=== PATIENT | female | born 1930 | race Caucasian/White ===

== ENCOUNTER → 2018-05-16 | Outpatient (CLI) | payer OTHER ==
[2015-04-17 09:33] VITALS: BP 128/60
[~2018-05-16] MED LIST: LEVO75TA PO; MULT-658 PO; OMEP40CA5 PO; POLY255P PO; SIMV20TA3 PO
--- NOTE | 2018-05-16 13:53 | RAD ---
EXAM: Nuclear gastric emptying scan. HISTORY: Constipation. Bloating. Pain. COMPARISON: None. TECHNIQUE: Serial static images were obtained over the stomach following oral administration of 2.2 mCi of 99m-Tc sulfur colloid. FINDINGS: The stomach empties into the small bowel without evidence of reflux in the area of the esophagus. The estimated time for half emptying of gastric contents, i.e. 'gastric emptying time' is 57 minutes (normal is 66 +/- 22 minutes). There is 48% retained tracer activity at one hour, 4% retained tracer activity at 2 hours, and 2% retained tracer activity at 3 hours and 4 hours. IMPRESSION: Normal gastric emptying scan. Electronically signed by: Betsy Worthington MD (05/16/2018 1:50 PM) [facility]
== END | disposition home or self-care (01) ==
LOC: NM 07:20
PROVIDERS: ATTEND Internal Medicine Gastroenterology
DX: R10.84 Generalized abdominal pain (principal); E78.5 Hyperlipidemia, unspecified; E78.00 Pure hypercholesterolemia, unspecified; Z90.710 Acquired absence of both cervix and uterus
CPT/HCPCS: 78264; A9541

== ENCOUNTER → 2018-08-20 | Outpatient (CLI) | payer OTHER ==
[2015-04-17 09:33] VITALS: BP 128/60
[~2018-08-20] MED LIST changes: -POLY255P PO; +POLY255P11 PO
--- NOTE | 2018-08-23 09:45 | RAD ---
DATE: 08/20/2018 EXAM: MAMMO MATEUSZ SCREENING BILATERAL HISTORY: Routine screening COMPARISON: 09/06/2017 This study was interpreted with the benefit of Computerized Aided Detection (CAD). Breast Density: HETERO The breast parenchyma is heterogenously dense, which could reduce sensitivity of mammography. Breast parenchyma level C. FINDINGS: 2-D and 3-D tomosynthesis imaging was performed in CC and MLO projections. No new or enlarging breast densities are seen. Benign type calcifications are present. No suspicious microcalcifications have developed. IMPRESSION: Stable mammograms without evidence of malignancy. BI-RADS CATEGORY: 2 BENIGN FINDING(S) RECOMMENDED FOLLOW-UP: 12M 12 MONTH FOLLOW-UP PQRS compliance statement: Patient information was entered into a reminder system with a target due date for the next mammogram. Mammography is a sensitive method for finding small breast cancers, but it does not detect them all and is not a substitute for careful clinical examination. A negative mammogram does not negate a clinically suspicious finding and should not result in delay in biopsying a clinically suspicious abnormality. "Our facility is accredited by the [employer] Mammography [employer]."
== END | disposition home or self-care (01) ==
LOC: MAMMO 12:53
PROVIDERS: ATTEND Internal Medicine
DX: Z12.31 Encounter for screening mammogram for malignant neoplasm of breast (principal)
CPT/HCPCS: 77063; 77067

== ENCOUNTER → 2019-08-25 | Outpatient (CLI) | payer OTHER ==
[2015-04-17 09:33] VITALS: BP 128/60
[~2019-08-25] MED LIST changes: +OMEP40CA45 PO; -OMEP40CA5 PO; +SIMV20TA18 PO; -SIMV20TA3 PO
--- NOTE | 2019-08-26 20:06 | RAD ---
DATE: 08/25/2019 EXAM: MAMMO MATEUSZ SCREENING BILATERAL HISTORY: Routine screening COMPARISON: 08/18/2015, 09/05/2016 09/06/2017 08/20/2018 mammographic exams This study was interpreted with the benefit of Computerized Aided Detection (CAD). Breast Density: HETERO The breast parenchyma is heterogenously dense, which could reduce sensitivity of mammography. Breast parenchyma level C. FINDINGS: Benign calcifications are present. No masses or distortion. IMPRESSION: Stable BI-RADS CATEGORY: 1 NEGATIVE RECOMMENDED FOLLOW-UP: 12M 12 MONTH FOLLOW-UP PQRS compliance statement: Patient information was entered into a reminder system with a target due date for the next mammogram. Mammography is a sensitive method for finding small breast cancers, but it does not detect them all and is not a substitute for careful clinical examination. A negative mammogram does not negate a clinically suspicious finding and should not result in delay in biopsying a clinically suspicious abnormality. "Our facility is accredited by the [employer] Mammography Program."
== END | disposition home or self-care (01) ==
LOC: MAMMO 08:44
PROVIDERS: ATTEND Internal Medicine
DX: Z12.31 Encounter for screening mammogram for malignant neoplasm of breast (principal); N64.89 Other specified disorders of breast
CPT/HCPCS: 77063; 77067

== ENCOUNTER → 2020-08-26 | Outpatient (CLI) | payer OTHER ==
[2015-04-17 09:33] VITALS: BP 128/60
[~2020-08-26] MED LIST changes: -LEVO75TA PO; +LEVO75TA90 PO
--- NOTE | 2020-08-26 16:19 | RAD ---
Examination: MG BILAT SCREEN+MATEUSZ History: Reason: SCREENING MAMMOGRAM 3D / Spl. Instructions: / History: Comparison/Correlation: 08/20/2017, 08/20/2018, 08/25/2019 Technique: MLO and CC digital tomosynthesis (3D) images obtained. Radiologist reviewed these images on dedicated workstation. Findings: Breast Tissue Density B : There are scattered areas of fibroglandular density. There are no dominant masses, suspicious microcalcifications, or architectural distortion. IMPRESSION: No mammographic evidence of malignancy. Recommend routine screening. BI-RADS category 1: Negative. The images were reviewed with computer-aided detection. Patient information is entered into reminder system with a target due date for the next screening [facility] mogram. Mammography is the most sensitive method for finding small breast cancers, but it does not detect the m all and is not a substitute for careful clinical examination. A negative mammogram does not negate a clinically suspicious finding and should not result in delay in biopsying a clinically suspicious a bnormality. "Our facility is accredited by the [employer] Mammography Program." Electronically signed by: Celestine Yoon MD (08/26/2020 4:17 PM) [email or web address]
== END ==
LOC: MAMMO 10:06
PROVIDERS: ATTEND Internal Medicine
DX: Z12.31 Encounter for screening mammogram for malignant neoplasm of breast (principal)
CPT/HCPCS: 77063; 77067

== ENCOUNTER → 2021-08-29 | Outpatient (CLI) | payer OTHER ==
[2015-04-17 09:33] VITALS: BP 128/60
[~2021-08-29] MED LIST changes: -OMEP40CA45 PO; +OMEP40CA7 PO
--- NOTE | 2021-08-30 13:05 | RAD ---
Bilateral digital screening 2-D and 3-D (digital breast tomosynthesis) mammogram: Reason for examination: Routine screening. Comparison: Mammograms from 08/26/2020 and 08/25/2019. Interpretation was made with the benefit of CAD. FINDINGS: Breast density: Category B. There are scattered areas of fibroglandular density. No suspicious breast mass, malignant appearing calcifications, or architectural distortion is seen. T here are small oval circumscribed masses in the left breast. The largest is in the retroareolar/6:00 position and measures 8 mm. Smaller masses are seen in the inferior breast the 4:00 to 6:30 region IMPRESSION: Small oval circumscribed masses in the left breast. Further evaluation with the targeted left breast ultrasound is recommended. Assessment: BI-RADS 0. Incomplete. Recommendation: Targeted left breast ultrasound. The patient will receive a letter with the results in the mail. Patient information will be entered i nto the mammography reminder system with a target recall date for the next mammogram. A reminder dharmesh er will be generated. Electronically signed by: Sonia Colindres MD (08/30/2021 1:03 PM) [id number]
== END ==
LOC: MAMMO 13:40
PROVIDERS: ATTEND Internal Medicine
DX: Z12.31 Encounter for screening mammogram for malignant neoplasm of breast (principal)
CPT/HCPCS: 77063; 77067

== ENCOUNTER → 2021-09-05 | Outpatient (CLI) | payer OTHER ==
[2015-04-17 09:33] VITALS: BP 128/60
--- NOTE | 2021-09-05 11:08 | RAD ---
EXAM: Left breast sonogram. HISTORY: 89-year-old female presents for evaluation of nodularity within the left breast demonstrated on a mammogram dated 08/29/2021. TECHNIQUE: Sonographic imaging of the left breast targeted to sites of mammographic nodularity was pe rformed. COMPARISON: 08/29/2021 and 08/26/2020. FINDINGS: There is a round hypoechoic lesion with internal echoes at the 6:00 subareolar location bill suring 5 mm, the appearance of which favors a complicated cyst with internal debris. There is an freddy cent smaller similar-appearing cyst at the 6:30 position measuring 3 mm. There is a cyst with interna l septation and internal debris or 2 adjacent cysts within the 3:30 position 5 cm from the nipple bill suring 3 mm. There is a 3 mm hypoechoic lesion with internal echoes at the 4:00 position 4 cm from th e nipple, also likely a complicated cyst. There is no suspicious sonographic lesion. There is no susp icious axillary lymph node. IMPRESSION: 1. Multiple small suspected complicated cysts within the left breast, likely corresponding with areas of mammographic nodularity of concern. 2. BI-RADS Category 3: Probably benign finding(s). Precautionary short term follow up with a diagnost ic left breast mammogram and sonogram in 6 months is recommended to confirm stability and confirm carla t the sonographic findings are concordant with the mammographic findings. Electronically signed by: Betsy Worthington MD (09/05/2021 11:05 AM) [id number]
== END ==
LOC: US 16:26
PROVIDERS: ATTEND Internal Medicine
DX: R92.2 Inconclusive mammogram (principal)
CPT/HCPCS: 76641